=== PATIENT | male | born 1970 | race Caucasian/White ===

== ENCOUNTER 2018-10-21 12:29 | Observation (INO) ==
[2018-10-21] MEDS ORDERED: HYDROmorphone 2 MG/1 ML VIAL ONE (13:31)
[2018-10-21] MEDS ORDERED: ONDANSETRON 4 MG/2 ML VIAL ONE (13:31)
[2018-10-21] MEDS ORDERED: ONDANSETRON 4 MG/2 ML VIAL IV STA ×2 (13:34→14:35)
[2018-10-21] MEDS ORDERED: HYDROmorphone 2 MG/1 ML VIAL IV STA ×2 (13:34→14:36)
[2018-10-21] MEDS ORDERED: ACETAMINOPHEN 325 MG TABLET PO PRN (15:09)
[2018-10-21] MEDS ORDERED: ONDANSETRON 4 MG/2 ML VIAL IV PRN (15:09)
[2018-10-21] MEDS ORDERED: HYDROmorphone 2 MG/1 ML VIAL IV PRN (15:20)
[2018-10-21 15:42] LABS: Basophils % 0.5 % (0.0-0.8); Eosinophils # 0.1 10*3/uL (0.0-0.87); Eosinophils % 1.3 % (0.00-10.9); Hematocrit 41.4 VOL% (42.0-52.0); Hemoglobin 14.1 GM/DL (14.0-18.0); Immature Granulocytes % 0.5 %; Immature Granulocytes Absolute 0.04 #; Lymphocytes # 1.9 10*3/uL (1.4-4.0); Lymphocytes % 25.2 % (21.2-54.2); Mean Corpuscular HGB Conc 34.1 GM/DL (32-36); Mean Corpuscular Volume 87.9 FL (87-102); Mean Platelet Volume 8.8 FL (9.6-12.0); Monocytes % 9.1 % (1.7-12.7); Neutrophils % 63.4 % (38.7-73.9); Platelet Count 273 T/CUMM (130-400); Red Blood Count 4.71 MC/CUMM (3.8-5.5); Red Cell Distribution Width 11.9 % (9.3-17.3); White Blood Count 7.7 T/CUMM (4-12)
[2018-10-21 16:14] LABS: Bilirubin,Total 0.6 MG/DL (0.2-1.0); Calcium 8.6 MG/DL (8.5-10.1); Osmolality,Calculated 281.3 MOS/KG (273-304); Total Protein 7.4 G/DL (6.4-8.3)
[2018-10-21] MEDS: methylPREDNISolone 4 MG TABLET PO SCH (17:52)
[2018-10-21] MEDS: CYCLOBENZAPRINE 10 MG TABLET PO SCH (21:03)
[2018-10-22] MEDS: methylPREDNISolone 4 MG TABLET PO SCH (09:23)
[2018-10-22] MEDS: CYCLOBENZAPRINE 10 MG TABLET PO SCH ×3 (09:23→20:42)
[2018-10-22] MEDS: PANTOPRAZOLE 40 MG TABLET PO SCH (09:23)
[2018-10-23 04:49] VITALS: BP 127/71
[2018-10-23] MEDS: CYCLOBENZAPRINE 10 MG TABLET PO SCH (08:13)
[2018-10-23] MEDS: methylPREDNISolone 4 MG TABLET PO SCH (08:13)
[2018-10-23] MEDS: PANTOPRAZOLE 40 MG TABLET PO SCH (08:13)
== END 2018-10-23 11:42 | disposition home or self-care (01) ==
LOC: N.EDINP 12:29 → N.ED 12:29 → SUATTDRO 15:09 → N.EDINP 16:46 → N.2E 16:51
PROVIDERS: ADMIT Hospitalist; ATTEND Internal Medicine